=== PATIENT | female | born 1990 | race Caucasian/White ===

== ENCOUNTER 2017-07-16 20:43 | Emergency (ER) | payer MEDICAID, SELFPAY ==
[2017-07-16 20:52] VITALS: BP 115/87; PULSE 82; RESP 18; TEMP 36.6; O2SAT 96; BMI 25.7
[2017-07-16 21:01] LABS: UTC Pregnancy Test, Urine Negative (Negative)
--- NOTE | 2017-07-16 21:01 | HMH.EDUTC ---
[facility] – [place] Dis[place] Clinical Impression: Vaginal discharge, Exposure to sexually transmitted disease (STD), Unprotected sex Disposition: Home, Self-Care Condition on Discharge: Good Instructions: DI for Chlamydia, DI for Vaginal Discharge Additional Instructions: * you were treated for chlamydia today with 1 gram of azithromycin only due to exposure. As we discussed, vaginal swabs are the preferred method to test for sexually transmitted infections. no further medication is necessary if this were chlamydia. As we discussed, nothing we have done today has ruled out any other possible causes/infections. * It is VERY important you keep you schedule pelvic exam for next week with your primary care, Angela Hicks. Be sure to report you were here. Urine preg negative. Urine sent for chlamydia and gonorrhea. Your provider will need to call and have those results faxed. We do NOT give these results out over the phone. * No intercourse until further exam/testing next week. * Seek treatment immediately for new or worsening symptoms. * Although your test was negative, it could be too soon. If you think there is a possibility you could be , you need to tell your provider next week and she can repeat the test at that time. Time of Disposition: 21:08 Medical Decision Making - Mike Inquiry Pt receiving controlled substance: No Vital Signs: 07/16/17 20:52 07/16/17 21:07 Temperature 98 F 98 F Temperature Source Temporal Artery Scan Temporal Artery Scan Pulse Rate 82 Pulse Rate [Brachial] 82 Respiratory Rate 18 18 Blood Pressure 115/87 Blood Pressure [Right Arm] 115/87 Blood Pressure Mean [Right Arm] 96 Blood Pressure Position [Right Arm] Sitting 02 Sat by Pulse Oximetry 96 Oxygen Delivery Method Room Air Room Air - Lab Data Lab results reviewed: Yes: I reviewed the patient's lab results. Lab Results 07/16/17 20:54: [facility]st Clinic Negative Orders (Tests/Meds): ED MEDICATIONS Discontinued Medications Generic Name Dose Route Start Last Admin Trade Name Freq PRN Reason Stop Dose Admin Azithromycin 1,000 mg 07/16/17 21:02 07/16/17 21:04 Zithromax 250mg Tablet PO 07/16/17 21:03 1,000 mg ONCE ONE Administration Protocol [facility] [place] HPI - General Stated complaint: test Time Seen by Provider: 07/16/17 20:55 Mode of Arrival: Ambulatory Source of Information: Patient Limitations: No Limitations Description of Symptoms (Recalled from Triage Doc. by RN): PT STATES SHES HAD YELLOW VAGINAL DISCHARGE AND HAS BEEN EXPOSED TO THE CLAP AND WOULD ALSO LIKE A TEST WHILE SHE IS HERE . HEENT Symptoms (Recalled from RN notes): No Resp Symptoms (Recalled from RN notes): No Skin Symptoms (Recalled from RN notes): No MS Symptoms (Recalled from RN notes): No Functional Status (Recalled from RN notes): NA - History of Present Illness Provider Complaint: Here tonight requesting testing for chlamydia and a test. Had called clinic and aware the best way to test is vaginal exam/swabs. Inquiring about urine. Was told it was available but that no immediate results. Pt came on in. pt refusing vaginal exam. Only wants a urine test and urine preg. Has appt scheduled for pelvic exam next week. Hx of yellow vaginal discharge x 1 week. Initially wasn't concerned but 2 days ago found out fiance had been cheating. yesterday found out female he had been cheating on her with has tested positive for chlamydia twice in one month. LMP 4 weeks ago. Should start anytime. Had not been using protection or control. - Related Data Home Medications Medication Instructions Recorded Confirmed No Known Home Medications [No 07/16/17 07/16/17 Known Home Medications] Allergies Allergy/AdvReac Type Severity Reaction Status Date / Time cephalexin [From Keflex] Allergy Unknown Unverified 04/09/17 15:42 Penicillins Allergy Unknown Unverified 04/09/17 15:42 Sulfa
[2017-07-16 21:07] VITALS: BP 115/87; PULSE 82; RESP 18; TEMP 36.6; O2SAT 96
--- NOTE | 2017-07-16 21:07 | ED_ITS ---
[facility] – [place] Disposition Clinical Impression: Vaginal discharge, Exposure to sexually transmitted disease (STD), Unprotected sex Disposition: Home, Self-Care Condition on Discharge: Good Instructions: DI for Chlamydia, DI for Vaginal Discharge Additional Instructions: * you were treated for chlamydia today with 1 gram of azithromycin only due to exposure. As we discussed, vaginal swabs are the preferred method to test for sexually transmitted infections. no further medication is necessary if this were chlamydia. As we discussed, nothing we have done today has ruled out any other possible causes/infections. * It is VERY important you keep you schedule pelvic exam for next week with your primary care, Angela Hicks. Be sure to report you were here. Urine preg negative. Urine sent for chlamydia and gonorrhea. Your provider will need to call and have those results faxed. We do NOT give these results out over the phone. * No intercourse until further exam/testing next week. * Seek treatment immediately for new or worsening symptoms. * Although your test was negative, it could be too soon. If you think there is a possibility you could be , you need to tell your provider next week and she can repeat the test at that time. Time of Disposition: 21:08 Medical Decision Making - Mike Inquiry Pt receiving controlled substance: No Vital Signs: 07/16/17 20:52 07/16/17 21:07 Temperature 98 F 98 F Temperature Source Temporal Artery Scan Temporal Artery Scan Pulse Rate 82 Pulse Rate [Brachial] 82 Respiratory Rate 18 18 Blood Pressure 115/87 Blood Pressure [Right Arm] 115/87 Blood Pressure Mean [Right Arm] 96 Blood Pressure Position [Right Arm] Sitting 02 Sat by Pulse Oximetry 96 Oxygen Delivery Method Room Air Room Air - Lab Data Lab results reviewed: Yes: I reviewed the patient's lab results. Lab Results 07/16/17 20:54: Tst Clinic Negative Orders (Tests/Meds): ED MEDICATIONS Discontinued Medications Generic Name Dose Route Start Last Admin Trade Name Freq PRN Reason Stop Dose Admin Azithromycin 1,000 mg 07/16/17 21:02 07/16/17 21:04 Zithromax 250mg Tablet PO 07/16/17 21:03 1,000 mg ONCE ONE Administration Protocol [facility] [place] HPI - General Stated complaint: test Time Seen by Provider: 07/16/17 20:55 Mode of Arrival: Ambulatory Source of Information: Patient Limitations: No Limitations Description of Symptoms (Recalled from Triage Doc. by RN): PT STATES SHES HAD YELLOW VAGINAL DISCHARGE AND HAS BEEN EXPOSED TO THE CLAP AND WOULD ALSO LIKE A TEST WHILE SHE IS HERE . HEENT Symptoms (Recalled from RN notes): No Resp Symptoms (Recalled from RN notes): No Skin Symptoms (Recalled from RN notes): No MS Symptoms (Recalled from RN notes): No Functional Status (Recalled from RN notes): NA - History of Present Illness Provider Complaint: Here tonight requesting testing for chlamydia and a test. Had called clinic and aware the best way to test is vaginal exam /swabs. Inquiring about urine. Was told it was available but that no immediate results. Pt came on in. pt refusing vaginal exam. Only wants a urine test and urine preg. Has appt scheduled for pelvic exam next week. Hx of yellow vaginal discharge x 1 week. Initially wasn't concerned but 2 days ago found out asad had been cheating. yesterday found out f
[2017-07-19 11:37] LABS: Neisseria gonorrhoeae, NAA Negative (Negative)
== END 2017-07-16 21:09 | disposition home or self-care (01) ==
PROVIDERS: Emergency Provider Nurse Practitioner Family; Family Provider Family Medicine
DX: N89.8 Other specified noninflammatory disorders of vagina (principal); Z72.51 High risk heterosexual behavior; Z20.2 Contact with and (suspected) exposure to infections with a predominantly sexual mode of transmission
CPT/HCPCS: 81025; 87491; 87591; 99201

== ENCOUNTER 2023-12-26 16:31 | Emergency (ER) | payer BC, SELFPAY ==
[2023-12-26 17:00] VITALS: BP 110/77; PULSE 76; RESP 18; TEMP 36.7; O2SAT 98; BMI 27.6
--- NOTE | 2023-12-26 17:13 | ED_ITS ---
Discharge Plan Disposition Patient Disposition: Home, Self-Care Condition: Good Prescriptions Prescriptions: New azithromycin [Zithromax Z-Ben] 250 mg tablet See Rx Instructions .ROUTE .COMPLEX 5 Days Qty: 6 0RF Rx Instructions: For 250 mg dose pack: take 500 mg today (day 1), then 250 mg for 4 days (days 2-5) methylprednisolone [Medrol (Ben)] 4 mg tablets,dose pack See Rx Instructions .Route .COMPLEX 6 Days Qty: 21 0RF Rx Instructions: taper pack; benzonatate 100 mg capsule 100 mg PO TID PRN (Reason: cough) Qty: 30 0RF No Action venlafaxine 150 mg capsule,extended release 24hr 150 mg PO DAILY Patient Comments: TAKE 1 CAPSULE BY MOUTH DAILY Referrals Follow up/Referrals: Provider,Referral, MD [Primary Care Provider] - See instructions Activity Restrictions/Add. Instructions Additional Instructions/Restrictions: * Start antibiotic today. Be sure to complete entire prescription even if feeling better * Monitor temp. Tylenol every 4 hours as needed and / or ibuprofen every 6 hours as needed ( As long as your primary care physician has told you that it ok to take both. For fever/aches/pains ER if no less than 101 despite Tylenol or Motrin * Humidifier/vaporizer or hot steamy shower * Inhaler every 4-6 hours as needed like we discussed. If unsure how to use it, ask pharmacist to demonstrate how. Should help open airways and improve cough, wheezing, and shortness of breath * Mucinex during the day for your cough and cough suppressant only at night. Be sure to drink lots of water. Insurance may not cover a prescriptions for mucinex. Might be cheaper to get 400mg tablets and take 2 tablet in the morning, mid-day and evening with lots of water. *Promethazine DM cough syrup will cause drowsiness. Use only at night. No driving, operating machinery or caring for small children after taking it *Tessalon Perles will not cause drowsiness but use at bedtime to help stop cough so that you may get some rest. *Start steroid today. Helps with inflammation therefore, cough and wheezing. Follow directions on the package. Reviewed side effects. Patient reports taking them before. Follow up IMMEDIATELY for new or worsening of symptoms OR no noticeable improvement over the next 48-72 hours. 911 immediately for any life threatening symptoms such as chest pain or difficulty breathing Clinical Impressions Clinical Impression: Otitis media Instructions Patient Instructions: Middle Ear Infection, Cough Print Language Print Language: Wolof Discharge ED Provider: Carolyn Cole [facility] [place] General Stated complaint: cough Mode of Arrival: Ambulatory Source of Information: Patient Limitations: No Limitations Time Seen by Provider: 12/26/23 17:15 Description of Symptoms (Recalled from Triage Doc. by RN): PATIENT C/O COUGH, FATIGUE AND CONGESTION SINCE SATURDAY HEENT Symptoms (Recalled from RN notes): Yes Resp Symptoms (Recalled from RN notes): Yes Skin Symptoms (Recalled from RN notes): No MS Symptoms (Recalled from RN notes): No Functional Status (Recalled from RN notes): WNL History of Present Illness Provider Complaint: Patient states that she started feeling bad last weekend States that she has been having nagging cough, chest and head congestion and feeling full in her ears So today she came in to get checked Related Data Home Medications ?Medication ?Instructions ?Recorded ?Confirmed venlafaxine 150 mg 150 mg PO DAILY 12/26/23 12/26/23 capsule,extended release 24 hr Previous Rx's ?Medication ?Instructions ?Recorded azithromycin 250 mg tablet See Rx Instructions PO .COMPLEX 5 12/26/23 (Zithromax Z-Ben) days #6 tabs benzonatate 100 mg capsule 100 mg PO TID PRN cough #30 caps 12/26/23 methylprednisolone 4 mg tablets in See Rx Instructions .Route 12/26/23 a dose pack (Medrol (Ben)) .COMPLEX 6 days #21 tabs Allergies Allergy/AdvReac Type Severity Reaction Status Date / Time cephalexin [From Keflex] Allergy Unknown Verified 01/25/19 15:06 Penicillins Allergy Unknown Verified 01/25/19 15:06 Sulfa (Sulfonamide Allergy Unknown Verified 01/25/19 15:06 Antibiotics) [SULFA (SULFONAMIDE ANTIBIOTICS)] morphine Allergy Verified 12/26/23 17:11 Worker's Comp Is this a Worker's Comp case?: No [facility] Disclaimer: The information contained in this section may have been updated after the patient was seen, as this information can be updated by other users. Medical History (Updated 12/26/23 @ 17:30 by Carolyn Cole, WELL SURVEYING ENGINEER) Depression Anxiety Surgical History (Updated 12/26/23 @ 17:13 by Susanna Duffy RN) History of cholecystectomy History of section History of tubal ligation Social History Smoking Status: Never smoker alcohol intake: never substance use type: denies use current occupational status: employed Travel in the last 8 weeks: None ROS Obtained: Yes All systems reviewed & no additional complaints except as documented and Yes Systems reviewed as appropriate & no additional complaints except as documented Constitutional Constitutional: Reports system reviewed and no additional complaints, except as documented, Reports as per HPI and Reports headache(s) ENT Ears, Nose, Mouth, and Throat: Reports system reviewed and no additional complaints, except as documented, Reports as per HPI, Reports otalgia (pressure), Reports headache(s), Reports nasal congestion and Reports sinus pressure Cardiovascular Cardiovascular: Reports system reviewed and no additional complaints, except as documented and Reports as per HPI Respiratory Respiratory: Reports system reviewed and no additional complaints, except as documented, Reports as per HPI, Reports chest congestion and Reports cough Neurologic Neurologic: Reports headache(s) Physical Exam General General appearance: alert and in no apparent distress ENT ENT exam: Present mucous membranes moist Expanded ENT Exam TM/Canal exam: Left TM: erythema and bulging Nose exam: Present sinus tenderness Throat exam: Present other (PND noted) Respiratory Respiratory exam: Present normal lung sounds bilaterally; Absent respiratory distress or wheezes Cardiovascular Cardiovascular exam: Present regular rate, normal rhythm and normal heart sounds Neurological Exam Neurological exam: Present alert, oriented X3 and normal gait Medical Decision Making Mike Inquiry Pt receiving controlled substance: No Mike was queried for this patient: No Vital Signs: 12/26/23 17:00 Temperature 98.1 F Temperature Source Oral Pulse Rate [Left Brachial] 76 Respiratory Rate 18 Blood Pressure [Left Arm] 110/77 Blood Pressure Mean [Left Arm] 88 Blood Pressure Source [Left Arm] Automatic Cuff Blood Pressure Position [Left Arm] Sitting 02 Sat by Pulse Oximetry 98 Oxygen Delivery Method Room Air
[2023-12-26 17:30] VITALS: BP 110/77; PULSE 76; RESP 18; TEMP 36.7; O2SAT 98
== END 2023-12-26 17:33 | disposition home or self-care (01) ==
PROVIDERS: Emergency Provider Nurse Practitioner
DX: H66.92 Otitis media, unspecified, left ear (principal); R05.9 Cough, unspecified; R09.81 Nasal congestion
CPT/HCPCS: 99204; 99212; G0463

== ENCOUNTER 2024-02-26 14:48 | Outpatient (CLI) | payer BC, SELFPAY ==
[2024-02-26 09:34] LABS: Basophils % 0.9 % (0.1-2.0); Eosinophils % 0.2 % (0.1-12.0); Hematocrit 40.2 % (37.0-47.0); Hemoglobin 13.7 g/dL (12.2-16.2); Lymphocytes # 1.8 K/mm3 (0.7-4.5); Lymphocytes % 35.3 % (10-50); Mean Corpuscular Volume 85.3 fl (81-99); Mean Platelet Volume 8.3 fl (7.4-10.4); Monocytes # 0.4 K/mm3 (0.1-1.0); Monocytes % 8.5 % (1.7-9.3); Neutrophils # 2.8 K/mm3 (1.8-7.8); Neutrophils % 55.1 % (37.0-80.0); Platelet Count 268 K/mm3 (142-424); Red Blood Count 4.71 M/mm3 (4.20-5.40); White Blood Count 5.1 K/mm3 (4.8-10.8)
[2024-02-26 09:55] LABS: Albumin Level 4.2 g/dl (3.5-5.0); Albumin/Globulin Ratio 1.6 (1.1-1.8); Anion Gap 12.8 mEq/L (5-15); Aspartate Amino Transferase 23 U/L (14-36); Bilirubin,Total 0.9 mg/dl (0.2-1.3); Blood Urea Nitrogen 8 mg/dl (7-17); Carbon Dioxide 25 mmol/L (22.0-30.0); Chloride 107 mmol/L (98-107); Cholesterol 163 mg/dl (140-200); Estimated Glomerular Filt Rate 184 ml/min (>60); GFR (African American) 222 ML/MIN (>60); Globulin 2.7 g/dL (1.3-3.2); Glucose 80 mg/dl (74-100); Potassium 3.8 mmoL/L (3.5-5.1); Sodium 141 mmol/L (136-145); Total Protein,Serum 6.9 g/dl (6.3-8.2); Triglycerides 77 mg/dl (30-150); VLDL Cholesterol 15 mg/dL (0-40)
[2024-02-26 09:56] LABS: Alanine Aminotransferase 17 U/L (12-78); Alkaline Phosphatase 108 U/L (38-126); Chol/HDL Ratio 3.5 (1-3.5); HDL Cholesterol 47 mg/dl (40-60); Magnesium 1.9 mg/dl (1.6-2.3)
[2024-02-26 10:07] LABS: Direct LDL Cholesterol 92.92 mg/dL (100-129)
[2024-02-26 10:54] LABS: Iron 59 ug/dL (37-170)
[2024-02-26 11:03] LABS: Total Iron Binding Capacity 344 ug/dL (265-497)
[2024-02-26 12:19] LABS: Vitamin B12 391 pg/mL (239-931)
[2024-02-26 12:20] LABS: Folate 6.14 ng/mL
[2024-03-12 20:14] LABS: 1,25 Dihydroxy Vitamin D 68 pg/mL (.); 1,25-Dihydroxy, Vitamin D-2 <10 pg/mL (.); 1,25-Dihydroxy, Vitamin D-3 68 pg/mL (.)
== END 2024-02-26 23:59 | disposition home or self-care (01) ==
LOC: LAB.DROPOF 14:48
PROVIDERS: PCP Internal Medicine; Visit Provider Internal Medicine
DX: Z98.84 Bariatric surgery status (principal); D50.9 Iron deficiency anemia, unspecified; E78.5 Hyperlipidemia, unspecified; E53.8 Deficiency of other specified B group vitamins; E55.9 Vitamin D deficiency, unspecified; J30.9 Allergic rhinitis, unspecified
CPT/HCPCS: 80053; 80061; 82607; 82652; 82746; 83540; 83550; 83735; 85025

== ENCOUNTER 2024-05-13 10:45 | Outpatient (CLI) | payer BC, SELFPAY | END 2024-05-13 23:59 | disposition home or self-care (01) | LOC: LAB.DROPOF 05-14 13:55 | PROVIDERS: PCP Internal Medicine; Visit Provider Internal Medicine | DX: B34.9 Viral infection, unspecified (principal) | CPT/HCPCS: 87635 ==

== ENCOUNTER 2025-03-11 09:45 | Outpatient (CLI) | payer BC, SELFPAY ==
[2025-03-11 14:05] LABS: Hematocrit 36.5 % (37.0-47.0); Hemoglobin 11.5 g/dL (12.2-16.2); Immature Granulocytes % 0 %; Mean Corpuscular HGB Conc 31.5 g/dL (31.8-35.4); Mean Corpuscular Hemoglobin 27.8 pg (27.0-31.2); Mean Corpuscular Volume 88.2 fl (81-99); Nucleated Red Blood Cells % 0 %; Platelet Count 272 K/mm3 (142-424); Red Blood Count 4.14 M/mm3 (4.20-5.40); Red Cell Distribution Width-SD 43.7 fL; White Blood Count 3.0 K/mm3 (4.8-10.8)
[2025-03-11 14:40] LABS: Alanine Aminotransferase 39 U/L (12-78); Albumin Level 4.5 g/dl (3.5-5.0); Albumin/Globulin Ratio 1.6 (1.1-1.8); Alkaline Phosphatase 142 U/L (38-126); Anion Gap 12.2 mEq/L (5-15); Aspartate Amino Transferase 49 U/L (14-36); Bilirubin,Total 0.9 mg/dl (0.2-1.3); Blood Urea Nitrogen 8 mg/dl (7-17); Calcium 9.3 mg/dl (8.4-10.2); Carbon Dioxide 28 mmol/L (22.0-30.0); Chloride 101 mmol/L (98-107); Creatinine,Serum 0.50 mg/dl (0.52-1.04); Estimated Glomerular Filt Rate 141 ml/min (>60); GFR (African American) 171 ML/MIN (>60); Globulin 2.8 g/dL (1.3-3.2); Glucose 73 mg/dl (74-100); Magnesium 1.9 mg/dl (1.6-2.3); Potassium 4.2 mmoL/L (3.5-5.1); Sodium 137 mmol/L (136-145); Total Protein,Serum 7.3 g/dl (6.3-8.2)
[2025-03-11 15:28] LABS: Vitamin B12 278 pg/mL (239-931)
--- OUTSIDE RECORDS SUMMARY | 2025-03-12 13:48 | XMS_ITS | Patient Health Record ---
Author Organization [facility] Address [address] [place] [address] Care Team Providers Care Community Health Nurse Supervisor Name Role Phone Juliet Le Unavailable [phone] Allergies Allergen (clinical drug ingredient) Drug/Non Drug Allergy documented on EMR Reaction Allergy Type Onset Date Status KEFLEX (CEPHALEXIN CAPS) Unspecified Drug Allergy 09/06/2014 Active PENICILLIN V POTASSIUM (PENICILLIN V POTASSIUM TAB Unspecified Drug Allergy 09/06/2014 Active sulfamethoxazole / trimethoprim SULFAMETHOXAZOLE-T RIMETHOPRIM Unspecified Drug Allergy 05/27/2017 Active Reason For Referral No Information Problems Problem Type SNOMED Code ICD Code Onset Dates Problem Status W/U Status Risk Notes Problem 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 Passive Smoke: N Alcohol Use: N Drug Use: N SOCIAL HX: Patient has never smoked. Passive Smoke: N Alcohol Use: N Drug Use: N condylomas Rectal condylomas Surgical History Surgery Date(Month/Year) gallbladder wisdom teeth
--- OUTSIDE RECORDS SUMMARY | 2025-03-12 13:49 | XMS_ITS | Clinical Summary ---
Author Organization [facility] Address [address] [place] [address] Care Team Providers Care Photo Graphics Librarian Name Role Phone Angela Ly Primary Care Provider [phone] Allergies Active Allergy Reactions Criticality Noted Date Comments Cephalexin Hives Medium 10/04/2019 Morphine Hives Medium 10/04/2019 Penicillins Hives Medium 10/04/2019 Sulfa Antibiotics Hives Medium 10/04/2019 Medications Vit-Fe Fumarate-FA ( 27-1) 27-1 MG tablet tablet Take by mouth Daily. Active ibuprofen (ADVIL,MOTRIN) 600 MG tablet Take 1 tablet by mouth Every 6 (Six) Hours As Needed for Mild Pain . 30 tablet 1 12/27/2019 9:52 AM EDT 12/27/2019 Active norethindrone-et hinyl estradiol FE (05/11) 1-20 MG-MCG per tablet Take 1 tablet by mouth Daily. 28 tablet 12 03/07/2020 Active Active Problems Problem Noted Date Diagnosed Date Currently 12/22/2019 related low back p ain in third trimester, antepartum 10/04/2019 Immunizations Immunization Administration Dates Next Due MMR 12/27/2019 Family History Medical History Relation Name Comments Leukemia Maternal Grandfather Coronary artery disease Maternal Grandmother Coronary artery disease Mother Diabetes Mother Hypertension Mother Relation Name Status Comments Maternal Grandfather Maternal Grandmother Mother Social History Tobacco Use Types Packs/Day Years Used Date Smoking Tobacco: Never Smokeless Tobacco: Never Alcohol Use Standard Drinks/Week Comments Not Currently 0 (1 standard drink = 0.6 oz pur e alcohol) [place] Depression Scale Answer Date Recorded [place] Depression Scale Total 0 12/25/2019 The thought of harming myself has occurred to me . Never 12/25/2019 Abuse Screen Answer Date Recorded Unsafe at Home or Work/School Not on file Feels Threatened by Someone? Not on file 03/2023 Does Anyone Keep You from Co ntacting Others or Doint Things Outside the Home? Not on file 01/31/2023 Physical Sign of Abuse Present Not on file 1 Housing Stability Answer Date Recorded Current Living Arrangements Not on file 01/20 Potentially Unsafe Housing Conditions Not on rafaela e 01/31/2023 Family and Community Support Answer Jacques e Recorded Help with Day-to-Day Activities Not on file 01/31/2023 Lonely or Isolated Not on file 01/31/2023 Employment Answer Date Recorded Do you want help finding or keeping work or a alma b? Not on file 01/31/2023 Disabilities Answer Date Recorded Concentrating, Remembering, or Making Decisions Difficulty Not on file 01/31/2023 Doing Errands Independently Difficulty Not on fi le 01/31/2023 Education Answer Date Recorded Help with school or training? 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 Not on file Not on le Last Filed Vital Signs Vital Sign Reading Time Taken Comments Blood Pressure 112/72 02/08/2020 4:13 PM EDT Pulse 83 12/27/2019 7:00 AM EDT Temperature 36.6 C (97.9 F) 12/27/2019 7:00 AM EDT Respiratory Rate 16 12/27/2019 7:00 AM EDT Oxygen Saturation 98% 12/25/2019 10: 05 AM EDT Inhaled Oxygen Concentration - - Weight 90.2 kg (198 lb 14.4 oz) 02/08/2020 4:13 PM EDT Height 162.6 cm (5' 4 ) 01/12/2020 2:50 PM EDT Body Mass Index 34.14 01/12/2020 2:50 PM EDT Plan of Treatment Health Maintenance Due Date Last Done Comments Annual Gynecologic Pelvic an d Breast Exam 1990 TDAP/TD VACCINES (1 - Tdap) 2009 ANNUAL PHYSICAL 12/22/2019 INFLUENZA VACCINE 11/20/2024 HEPATITIS C SCREENING Completed 05/08/2019 Pneumococcal Vaccine 0-49 Aged Out No longer eligible based on patient's age to complete this topic Procedures Procedure Name Priority Date/Time Associated Diagnosis Comments HEPATITIS C ANTIBODY Routine 05/08/2019 from Last 3 Months or Most Recently Relevant to Health Maintenance Results * Hepatitis C Antibody (05/08/2019) External Hepatitis C Ab Negative Blood [facility] Provider LAB BLOOD ORDERABLES [place] Result from Last 3 Months or Most Recently Relevant to Health Maintenance Insurance Advance Directives * CPR (Attempt to Resuscitate) (Latest Code Status on File) Date Activated Date Inactivated Comments 12/25/2019 10:53 AM 12/27/2019 3:19 PM Question Answer Comments Code Status (Patient has no pulse and is not breathing): CPR (Attempt to Resuscitate) Medical Interventions (Patie nt has pulse or is breathing): Full Care Teams Photo Graphics Librarian Relationship Specialty Start Date End Date Angela Ly PA [address] [place], [place] [address] [address] [place] [id number] PCP - General Physician Production Engine Repairer 10/04/19
--- OUTSIDE RECORDS SUMMARY | 2025-03-12 13:49 | XMS_ITS | Clinical Summary ---
Author Organization [facility] Address [address] [id number] Care Team Providers Care Institution Director Name Role Phone Angela Ly Primary Care Provider Family History Medical History Relation Name Comments Hypertension Other 1 Other cancer Other 2 Heart attack Other 3 Relation Name Status Comments Other 1 Other 2 Other 3 Social History Tobacco Use Types Packs/Day Years Used Date Smoking Tobacco: Never Alcohol Use Standard Drinks/Week Comments No 0 (1 standard drink = 0.6 oz pur e alcohol) Comments Unknown Sex and Gender Information Value Date Recorded Sex Assigned at Not on file Legal Sex Female 6:02 PM EDT Gender Identity Not on file Sexual Orientation Not on file Last Filed Vital Signs Vital Sign Reading Time Taken Comments Blood Pressure - - Pulse - - Temperature - - Respiratory Rate - - Oxygen Saturation - - Inhaled Oxygen Concentration - - Weight 71.4 kg (157 lb 5.1 oz) 10/25/2015 11:13 AM EDT Height 157.5 cm (5' 2 ) 10/25/2015 11:13 AM EDT Body Mass Index 28.77 10/25/2015 11:13 AM EDT Plan of Treatment Not on file Care Teams Institution Director Relationship Specialty Start Date End Date Angela Ly PA [address] [place] [id number] PCP - General 09/02/20
--- OUTSIDE RECORDS SUMMARY | 2025-03-12 13:49 | XMS_ITS | Data Portability ---
Author Organization [facility] Address [address] [place] [address] Assessment No assessment recorded. Plan of Treatment Reminders Order Date Submit Date Provider Last Modified By Organization Details Last Modified Time Details Appointments None recorded. Lab vitamin B12 + folate, serum or blood 2020 THANH [facility], [address], [address], [place], [address], 09:13:22 CBC w/ auto diff 2020 021 THANH [facility], [address], [address] [address], [place], [address], 09:13:20 CMP, serum or plasma 2020 021 THANH [facility], [address], [address] [address], [place], [address], 09:13:21 vitamin D, 25-hydroxy, total, serum 2020 021 THANH [facility], [address], [place] [address], [place], [address], 09:13:24 TSH, ultra-sensi tive, serum 2020 021 THANH [facility], [address], [place] [address], [place], [address], 09:13:23 Referral None recorded. Procedures None recorded. Surgeries None recorded. Imaging None recorded. Medication Orders fluoxetine 40 mg capsule 2022 023 [facility], [address] [place], [address], 3 16:55:42 fluoxetine 40 mg capsule 2021 022 [facility], [address] [place], [address], 2 16:04:34 fluoxetine 20 mg capsule 2021 022 [facility], [address] [place], [address], 2 16:35:16 sertraline 50 mg tablet 2020 021 [email or web address], [address] [place], [address], 2 16:21:36 sertraline 25 mg tablet 2020 021 [email or web address], [address] [place], [address], 17:09:36 Patient TargetsNo targets recorded. Patient Instructions Encounter Date Encounter Id Patient Instructions Last Modified By Organization Details Last Modified Time 06/16/2020 [id number] learning about mood disorders Not available 06/16/2020 11:38:13 f/u in 3 weeks, discussed risks, benefits of meds [email or web address] Not available 06/16/2020 12:55:33 07/13/2020 [id number] learning about mood disorders [email or web address] Not available 07/13/2020 17:09:29 08/10/2021 [id number] learning about mood disorders [email or web address] Not available 08/10/2021 16:33:13 mental health counseling* [email or web address] Not available 05/25/2022 12:34:41 f/u in one month [email or web address] Not availabl e 08/10/2021 16:48:54 09/11/2021 [id number] learning about mood disorders [email or web address] Not available 09/11/2021 17:22:50 f/u in 3 months [email or web address] Not available 09/11/2021 17:22:15 05/11/2022 [id number] learning about mood disorders [email or web address] Not available 05/11/2022 16:55:18 f/u in 6 months [email or web address] Not available 05/11/2022 16:58:01 Reason for Referral None Reported. 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 Nucle ic acid ampli ficat ion tests inclu de RT-PC R and TMA. This test has not been FDA clear ed or appro anu. This test has been autho rized by FDA under an Emerg ency Use Autho rizat ion (EUA) . This test is only autho rized for the durat ion of time the decla ratio n that circu mstan aristides exist justi fying the autho rizat ion of the emerg ency use of in vitro diagn ostic tests for detec tion of SARS- CoV-2 virus and/o r diagn osis of COVID -19 infec tion under secti on 564(b )(1) of the Act, 21 U.S.C . 360bb b-3(b ) (1), unles s the autho rizat ion is termi nated or revok ed soone r. When diagn ostic testi ng is negat monie, the possi bilit y of a false negat monie resul t shoul d be consi dered in the minal xt of a patie nt's recen t expos ures and the prese nce of clini starr signs and sympt oms consi stent with COVID -19. An indiv idual witho ut sympt oms of COVID -19 and who is not [place] ing SARS- CoV-2 virus would expec t to have a negat monie (not detec marcus) resul t in this assay . Not Available [facility] [email or web address] [facility], [place], [address], 05/20/2020 15:09:53 05/19/19 21 05/19/2020 rapid flu (A+B) Flu negati ve Not Available [facility] [address], [place], [address], 05/19/2020 11:13:04 05/19/19 21 05/19/2020 rapid flu (A+B) Type Both A & B Not Available [facility] [address], [place], [address], 05/19/2020 11:13:04 05/19/19 21 05/19/2020 rapid SARS CoV + SARS CoV 2 Ag, QL IA, respi rator y speci men SARS CoV antigen Positi ve Not Available [facility] [address], [place], [address], 05/19/2020 11:13:02 06/16/19 21 06/17/2020 CBC w/ auto diff WBC 8.1 x10e3 /uL 3.4-10 .8 Not Available [facility] ([facility]) [address] [facility], [place], [address], 06/17/2020 09:13:19 06/16/19 21 06/17/2020 CBC w/ auto diff RBC 4.65 x10e6 /uL 3.77-5 .28 Not Available [facility] ([facility]) [address] [facility], [place], [address], 06/17/2020 09:13:19 06/16/19 21 06/17/2020 CBC w/ auto diff hemoglobin 12.9 g/dL 11.1-1 5.9 Not Available [facility] ([facility]) [address] [place], [address], 06/17/2020 09:13:19 06/16/19 21 06/17/2020 CBC w/ auto diff hematocrit 40.0 % 34.0-4 6.6 Not Available [facility] ([facility]) [address] [place], [address], 06/17/2020 09:13:19 06/16/1906/17/2020 CBC w/ auto diff MCV 86 fL 79-97 Not Available [facility] ([facility]) [address] [place], [address], 06/17/2020 09:13:19 06/16/19 21 06/17/2020 CBC w/ auto diff MCH 27.7 pg 26.6-3 3.0 Not Available [facility] ([facility]) [address] [place], [address], 06/17/2020 09:13:19 06/16/19 21 06/17/2020 CBC w/ auto diff MCHC 32.3 g/dL 31.5-3 5.7 Not Available [facility] ([facility]) [address] [place], [address], 06/17/2020 09:13:19 06/16/19 21 06/17/2020 CBC w/ auto diff RDW 13.3 % 11.7-1 5.4 Not Available [facility] ([facility]) [address] [place], [address], 06/17/2020 09:13:19 06/16/19 21 06/17/2020 CBC w/ auto diff platelets 362 x10e3 /uL 150-45 0 Not Available [facility] ([facility]) [address] [place], [address], 06/17/2020 09:13:19 06/16/19 21 06/17/2020 CBC w/ auto diff neutrophils 65 % not estab. Not Available [facility] ([facility]) [address] [facility], [place], [address], 06/17/2020 09:13:19 06/16/19 21 06/17/2020 CBC w/ auto diff lymphs 27 % not estab. Not Available [facility] ([facility]) [address] [facility], [place], [address], 06/17/2020 09:13:19 06/16/19 21 06/17/2020 CBC w/ auto diff monocytes 6 % not estab. Not Available [facility] ([facility]) [address] [facility], [place], [address], 06/17/2020 09:13:19 06/16/19 21 06/17/2020 CBC w/ auto diff eos 2 % not estab. Not Available [facility] ([facility]) [address] [facility], [place], [address], 06/17/2020 09:13:19 06/16/19 21 06/17/2020 CBC w/ auto diff basos 0 % not estab. 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 0 Not Available [facility] ([facility]) [address] [place], [address], 06/17/2020 09:13:19 06/16/19 21 06/17/2020 CBC w/ auto diff lymphs (absolute) 2.2 x10e3 /uL 0.7-3. 1 Not Available [facility] ([facility]) [address] [facility], [place], [address], 06/17/2020 09:13:19 06/16/19 21 06/17/2020 CBC w/ auto diff monocytes(ab solute) 0.5 x10e3 /uL 0.1-0. 9 Not Available [facility] ([facility]) [address] [place], [address], 06/17/2020 09:13:19 06/16/19 21 06/17/2020 CBC w/ auto diff eos (absolute) 0.2 x10e3 /uL 0.0-0. 4 Not Available [facility] ([facility]) [address] [facility], [place], [address], 06/17/2020 09:13:19 06/16/19 21 06/17/2020 CBC w/ auto diff baso (absolute) 0.0 x10e3 /uL 0.0-0. 2 Not Available [facility] ([facility]) [address] [facility], [place], [address], 06/17/2020 09:13:19 06/16/19 21 06/17/2020 CBC w/ auto diff immature granulocytes 0 % not estab. Not Available [facility] ([facility]) [address] [place], [address], 06/17/2020 09:13:19 06/16/19 21 06/17/2020 CBC w/ auto diff immature grans (abs) 0.0 x10e3 /uL 0.0-0. 1 Not Available [facility] ([facility]) [address] [place], [address], 06/17/2020 09:13:19 06/16/19 21 06/17/2020 CBC w/ auto diff NRBC ELEVATOR ERECTOR Not Available [facility] ([facility]) [address] [place], [address], 06/17/2020 09:13:19 06/16/19 21 06/17/2020 CBC w/ auto diff hematology comments: ELEVATOR ERECTOR Not Available [facility] ([facility]) [address] [place], [address], 06/17/2020 09:13:19 06/16/19 21 06/17/2020 CMP, serum or plasm a glucose 96 mg/dL 65-99 Not Available [facility] ([facility]) [address] [place], [address], 06/17/2020 09:13:21 06/16/19 21 06/17/2020 CMP, serum or plasm a BUN 11 mg/dL 6-20 Not Available [facility] ([facility]) [address] [place], [address], 06/17/2020 09:13:21 06/16/19 21 06/17/2020 CMP, serum or plasm a creatinine 0.78 mg/dL 0.57-1 .00 Not Available [facility] ([facility]) [address] [place], [address], 06/17/2020 09:13:21 06/16/19 21 06/17/2020 CMP, serum or plasm a eGFR if nonafricn AM 103 mL/mi n/1.7 3 >59 Not Available [facility] ([facility]) [address] [place], [address], 06/17/2020 09:13:21 06/16/19 21 06/17/2020 CMP, serum or plasm a eGFR if africn AM 119 mL/mi n/1.7 3 >59 Not Available [facility] ([facility]) [address] [place], [address], 06/17/2020 09:13:21 06/16/19 21 06/17/2020 CMP, serum or plasm a BUN/creatini ne ratio 14 9-23 Not Available [facility] ([facility]) [address] [place], [address], 06/17/2020 09:13:21 06/16/19 21 06/17/2020 CMP, serum or plasm a sodium 143 mmol/ L 134-14 4 Not Available [facility] ([facility]) [address] [place], [address], 06/17/2020 09:13:21 06/16/19 21 06/17/2020 CMP, serum or plasm a potassium 3.9 mmol/ L 3.5-5. 2 Not Available [facility] ([facility]) [address] [place], [address], 06/17/2020 09:13:21 06/16/19 21 06/17/2020 CMP, serum or plasm a chloride 105 mmol/ L 96-106 Not Available [facility] ([facility]) [address] [place], [address], 06/17/2020 09:13:21 06/16/19 21 06/17/2020 CMP, serum or plasm a carbon dioxide, total 22 mmol/ L 20-29 Not Available [facility] ([facility]) [address] [place], [address], 06/17/2020 09:13:21 06/16/19 21 06/17/2020 CMP, serum or plasm a calcium 9.1 mg/dL 8.7-10 .2 Not Available [facility] ([facility]) [address] [place], [address], 06/17/2020 09:13:21 06/16/19 21 06/17/2020 CMP, serum or plasm a protein, total 7.2 g/dL 6.0-8. 5 Not Available [facility] ([facility]) [address] [facility] [place], [address], 06/17/2020 09:13:21 06/16/19 21 06/17/2020 CMP, serum or plasm a albumin 4.0 g/dL 3.9-5. 0 Not Available [facility] ([facility]) [address] [facility] [place], [address], 06/17/2020 09:13:21 06/16/19 21 06/17/2020 CMP, serum or plasm a globulin, total 3.2 g/dL 1.5-4. 5 Not Available [facility] ([facility]) [address] [facility] [place], [address], 06/17/2020 09:13:21 06/16/1906/17/2020 CMP, serum or plasm a A/G ratio 1.3 1.2-2. 2 Not Available [facility] ([facility]) [address] [facility] [place], [address], 06/17/2020 09:13:21 06/16/1906/17/2020 CMP, serum or plasm a bilirubin, total 0.5 mg/dL 0.0-1. 2 Not Available [facility] ([facility]) [address] [place], [address], 06/17/2020 09:13:21 06/16/1906/17/2020 CMP, serum or plasm a alkaline phosphatase 94 IU/L 39-117 Not Available [facility]) [address] [place], [address], 06/17/2020 09:13:21 06/16/1906/17/2020 CMP, serum or plasm a AST (SGOT) 13 IU/L 0-40 Not Available [facility] ([facility]) [address] [place], [address], 06/17/2020 09:13:21 06/16/19 21 06/17/2020 CMP, serum or plasm a ALT (SGPT) 23 IU/L 0-32 Not Available [facility] ([facility]) [address] [facility], [place], [address], 06/17/2020 09:13:21 06/16/19 21 06/17/2020 vitam in B12 + folat e, serum or blood vitamin B12 824 pg/mL 232-12 45 Not Available [facility] ([facility]) [address] [facility], [place], [address], 06/17/2020 09:13:21 06/16/1906/17/2020 vitam in B12 + folat e, serum or blood folate (folic acid), serum >20.0 NG/mL >3.0 A serum folat e clyde ntrat ion of less than 3.1 ng/mL is consi dered to repre sent clini starr defic iency . Not Available [facility] ([facility]) [address] [facility], [place], [address], 06/17/2020 09:13:21 06/16/1906/17/2020 TSH, ultra -sens itive , serum TSH 1.370 uIU/m L 0.450- 4.500 Not Available [facility] ([facility]) [address] [facility], [place], [address], 06/17/2020 09:13:22 06/16/1906/17/2020 vitam in D, 25-hy droxy , total , serum vitamin D, 25-hydroxy 39.0 NG/mL 30.0-1 00.0 Vitam in D defic iency has been defin ed by the Insti tute of Medic ine and an Endoc rine Socie ty pract ice guide line as a level of serum 25-OH vitam in D less than 20 ng/mL (1,2) . The Endoc rine Socie ty went on to [facility] er defin e vitam in D insuf ficie ncy as a level betwe en 21 and 29 ng/mL (2). 1. IOM (Inst itute of Medic ine). 2009. Alicia ry refer ence intzenobia es for calci um and D. Soumya ortiz [place]: The [facility] . 2. Olman k [place], Binkl ey [place], Bisch off-F errar i BRIONES, et al. Evalu ation , treat ment, and preve ntion of vitam in D defic iency : an Endoc rine Socie ty clini starr pract ice guide line. JCEM. 2010; 96(7) :1911 -30. Not Available [facility] ([facility]) [address] [facility], [place], [address], 06/17/2020 09:13:23 Result Notes None recorded. Problems Name Problem SNOMED Code Status Onset Date Resolution Date Notes Provider Name and Address Organization Details Recorded Time Depressive disorder 71553467 Active 021 Indra weber, [place] - [facility] 16:59:26 Problem Notes None recorded. Procedures Surgical History Date Name Laterality Status Provider Name and Address Organization Details Recorded Time 02/07/20 17 Date of Last Pap Smear completed Tika PARRA - [facility] 04/01/2017 10:08:51 04/06/20 15 Colposcopy completed Tika PARRA - [facility] 04/01/2017 10:09:22 04/05/20 15 Colposcopy completed Tika Pagan [place] - [facility] 04/01/2017 10:12:38 03/22/20 14 Cholecystectomy, laparoscopic completed Tika PARRA - [facility] 04/01/2017 10:13:07 11/29/19 10 delivery completed Tika PARRA - [facility] 04/01/2017 10:12:49 dental surgery completed Tika PARRA - [facility] 04/01/2017 10:13:13 Imaging Results None recorded. Procedure Notes None recorded. Medical Equipment None Reported. Allergies Allergen ID Allergen Name Allergen Category Reaction Reaction Severity Criticality Documentation Date Start Date Code Code System Note Provider Name and Address Organization Details Recorded Time 47644 Substance with sulfonami de structure and antibacte rial mechanism of action (substanc e) medicatio n rash Not available Not available 01/27/20162008 91277 8003 SNOMED React ion: rash; Not Available [facility] 6 09:55:00 38712 Product containin g penicilli n (product) medicatio n rash Not available Not available 01/27/20162008 31367 8001 SNOMED React ion: rash; Not Available [facility] 6 09:55:00 16290 Keflex medicatio n rash Not available Not available 01/27/20162008 62564 7 RxNorm React ion: rash; Not Available [facility] 6 09:55:01 04839 house dust mite environme nt Not available Not available Not available 01/27/20162008 Not Available [facility] 6 10:03:44 Medications Name Sig Start Date Stop Date Status Note LastModified by Organization Details LastModified Time fluoxetin e 40 mg capsule TAKE 1 CAPSULE BY MOUTH ONCE DAILY. active Not Available Not Available No t Available fluconazo le 100 mg tablet TAKE 1 TABLET BY MOUTH ONCE DAILY. active Not Available Not Available No t Available promethaz ine-DM 6.25 mg-15 mg/5 mL oral syrup TAKE 5ML BY MOUTH EVERY 4 HOURS NEEDED. active Not Available Not Available No t Available venlafaxi ne ER 37.5 mg capsule,e xtended release 24 hr TAKE 1 CAPSULE BY MOUTH DAILY. active Not Available Not Available No t Available venlafaxi ne ER 75 mg capsule,e xtended release 24 hr TAKE 1 CAPSULE BY MOUTH ONCE DAILY active Not Available Not Available No t Available doxycycli ne hyclate 100 mg capsule TAKE 1 CAPSULE BY MOUTH TWICE A DAY. active Not Available Not Available No t Available tizanidin e 2 mg tablet TAKE 1 TABLET BY MOUTH ONCE DAILY NEEDED. 08/10 completed Not Available Not Available Not Available clindamyc in HCl 300 mg capsule 04/01 completed Not Available Not Available Not Available azithromy wilver 250 mg tablet TAKE 2 TABLETS BY MOUTH THE FIRST DAYS DOSE, THEN TAKE 1 TABLET DAILY FOR 4 MORE DAYS. active Not Available Not Available No t Available ibuprofen 800 mg tablet 04/01 completed Not Available Not Available Not Available fluconazo le 150 mg tablet TAKE 1 TABLET BY MOUTH NOW THEN REPEAT IN 3 DAYS 08/10 completed Not Available Not Available Not Available sumatript an 25 mg tablet TAKE 1 TABLET BY MOUTH WITH FLUIDS AT ONSET OF MIGRAINE . MAY REPEAT WITH 1 TAB IN 2 HOURS IF NEEDED. DO NOT EXCEED 2 TABLETS IN 24 HOURS. 08/10 completed Not Available Not Available Not Available prednison e 20 mg tablet TAKE 3 TABLETS A DAY FOR 2 DAYS , THEN 2 TABLETS A DAY FOR 2 DAYS, THEN 1 DAILY FOR 2 DAYS active Not Available Not Available No t Available prednison e 5 mg tablet TAKE 6 TABS ON DAY 1, 5 TABS ON DAY 2, 4 TABS ON DAY 3, 3 TABS ON DAY 4, 2 TABS ON DAY 5, 1 TAB ON DAY 6, THEN STOP. TAKE WITH FOOD 08/10 completed Not Available Not Available Not Available clindamyc in HCl 150 mg capsule TAKE 1 CAPSULE BY MOUTH 2 TIMES DAILY active Not Available Not Available No t Available metronida zole 500 mg tablet take 1 tablet (500 mg) by oral route 2 times per day for 7 days 11/11 completed Not Available Not Available Not Available norethind dorothy 1 mg-ethiny l estradiol 20 mcg (21)-iron 75 mg (7) tablet TAKE 1 TABLET BY MOUTH DAILY. 08/10 completed Not Available Not Available Not Available valacyclo vir 500 mg tablet 04/01 completed Not Available Not Available Not Available ciproflox acin 500 mg tablet TAKE 1 TABLET BY MOUTH EVERY 12 HOURS FOR 7 DAYS. active Not Available Not Available No t Available doxycycli ne monohydra te 100 mg tablet TAKE 1 TABLET BY MOUTH 2 TIMES DAILY active Not Available Not Available No t Available pantopraz ole 20 mg tablet,de layed release 04/01 completed Not Available Not Available Not Available meloxicam 7.5 mg tablet TAKE 1 TABLET BY MOUTH ONCE DAILY. active Not Available Not Available No t Available oxycodone -acetamin ophen 5 mg-325 mg tablet 05/19 completed Not Available Not Available Not Available Metrogel Vaginal 0.75 % (37.5 mg/5 gram) insert 1 applicat orful (37.5 mg) by vaginal route once daily at bedtime for 5 days 01/11 completed Metrogel Vaginal Gel 0.75 %;Record ed Status: Recorded on: 09/24/19 10 10:23AM; Disconti nued Status: Disconti nued on: 01/12/20 10 1:23PM;U ser: [email or web address];E st. Completi on: 09/29/19 10;Indic ation: Bacteria l Vaginosi s - ([phone] 00);Prin marcus: 09/24/19 10 Not Available Not Available Not Available imiquimod 5 % topical cream packet 04/01 completed Not Available Not Available Not Available benzonata te 100 mg capsule take 1 -2 capsules (100 mg) by oral route 3 times per day PRN for cough 04/01 completed benzonat ate Oral capsule 100 mg;Recor ded Status: Recorded on: 06/18/19 13 1:46PM;U ser: [email or web address];Printe d: 06/18/19 13 Not Available Not Available Not Available doxycycli ne monohydra te 100 mg capsule TAKE 1 CAPSULE BY MOUTH TWICE A DAY. 08/10 completed Not Available Not Available Not Available hydrocodo ne 7.5 mg-acetam inophen 325 mg tablet 04/01 completed Not Available Not Available Not Available erythromy wilver 5 mg/gram (0.5 %) eye ointment APPLY A THIN LAYER TO AFFECTED EYE(S) 4 TIMES DAILY FOR 7 DAYS 08/10 completed Not Available Not Available Not Available acyclovir 5 % topical ointment 04/01 completed Not Available Not Available Not Available oseltamiv ir 75 mg capsule active Not Available Not Available Not Available ferrous sulfate 325 mg (65 mg iron) tablet take 1 tablet by oral route daily for 30 days 01/11 completed Ferrous Sulfate Oral Tablet 325 mg (65 Iron);Re corded Status: Recorded on: 04/07/20 09 10:50AM; Disconti nued Status: Disconti nued on: 01/12/20 10 1:23PM;U ser: [email or web address]; Est. Completi on: 04/02/20 10 Not Available Not Available Not Available ranitidin e 150 mg tablet 05/19 completed Not Available Not Available Not Available fluoxetin e 10 mg capsule TAKE 1 CAPSULE BY MOUTH DAILY. active Not Available Not Available No t Available sertralin e 25 mg tablet Take 1 tablet every day by oral route for 30 days. 07/13 completed Not Available Not Available Not Available omeprazol e 20 mg capsule,d elayed release take 1 capsule by oral route 2 times a day for 30 days 04/01 completed Not Available Not Available Not Available Nix Creme Rinse 1 % topical liquid apply a sufficie nt amount of shampoo by topical route once allow to remain on hair for 10 minutes before rinsing off with water 04/07 completed Nix Creme Rinse Topical Liquid 1 %;Record ed Status: Recorded on: 02/29/20 12:54PM; Disconti nued Status: Disconti nued on: 04/07/20 09 10:33AM; User: Chata stPark Completi on: 03/02/20 09;Indic ation: Pediculo sis Capitis - ();Prin marcus: 02/29/20 Not Available Not Available Not Available norgestim ate-ethin yl estradiol 0.18mg/0. 215mg/0.2 5mg-0.035 mg(28)tab let TAKE 1 TABLET BY MOUTH ONCE DAILY. 08/10 completed Not Available Not Available Not Available ibuprofen 600 mg tablet 05/19 completed Not Available Not Available Not Available methylpre dnisolone 4 mg tablets in a dose pack 04/01 completed Not Available Not Available Not Available Terazol 7 0.4 % vaginal cream insert 1 applicat orful by vaginal route once daily at bedtime for 7 days 01/11 completed Terazol 7 Vaginal Cream 0.4 %;Record ed Status: Recorded on: 10/22/19 10 10:52AM; Disconti nued Status: Disconti nued on: 01/12/20 10 1:23PM;U ser: Jaqui st. Completi on: 10/29/19 10;Print ed: 10/22/19 10 Not Available Not Available Not Available brompheni ramine-ps eudoephed rine-DM 2 mg-30 mg-10 mg/5 mL oral syrup TAKE 10 ML BY MOUTH 3 TIMES DAILY NEEDED FOR COUGH FOR 5 DAYS. 08/10 completed Not Available Not Available Not Available ondansetr on 4 mg disintegr ating tablet DISSOLVE 1 TABLET BY MOUTH EVERY 8 HOURS FOR 5 DAYS. active Not Available Not Available No t Available fluoxetin e 20 mg capsule TAKE 1 CAPSULE BY MOUTH DAILY. active Not Available Not Available No t Available fluticaso ne propionat e 50 mcg/actua tion nasal spray,monica pension INSTILL 1 SPRAY IN EACH NOSTRIL ONCE DAILY FOR 7 DAYS. 08/10 completed Not Available Not Available Not Available sertralin e 50 mg tablet TAKE 1 TABLET BY MOUTH DAILY. 08/10 completed Not Available Not Available Not Available naproxen 500 mg tablet TAKE 1 TABLET EVERY 12 HOURS WITH FOOD OR MILK. 08/10 completed Not Available Not Available Not Available Ventolin HFA 90 mcg/actua tion aerosol inhaler AD 06/16 completed Not Available Not Available Not Available Depo-Prov era 150 mg/mL intramusc ular syringe inject 1 millilit er (150 mg) by intramus cular route every 3 months next dose due no later than 03/02/10 ; Mother may inject but please call office so we can document dates 06/25 completed Depo-Pro vera Intramus cular Syringe 150 mg/mL;Re corded Status: Recorded on: 01/12/20 10 1:46PM;D iscontin ued Status: Disconti nued on: 06/26/19 12 3:58PM;U ser: showerl; Printed: 01/12/20 10 Not Available Not Available Not Available cyclobenz aprine 5 mg tablet 04/01 completed Not Available Not Available Not Available nitrofura ntoin monohydra te/macroc rystals 100 mg capsule take 1 capsule (100 mg) by oral route every 12 hours with food for 7 days 05/19 completed Not Available Not Available Not Available 27 mg iron-0.8 mg tablet take 1 tablet by oral route once daily for 30 days 01/11 completed Oral Tablet 27-0.8 mg;Recor ded Status: Recorded on: 08/13/19 10 10:45AM; Disconti nued Status: Disconti nued on: 01/12/20 10 1:23PM;U ser: [email or web address];Est. Completi on: 08/08/19 11;Indic ation: Pregnanc y - (18.[id number]);Prin marcus: 08/13/19 10 Not Available Not Available Not Available Tri-Lo-Sp rintec 0.18 mg/0.215 mg/0.25 mg-0.025 mg tablet TAKE 1 TABLET BY MOUTH DAILY. active Not Available Not Available No t Available Dasetta (28) 1 mg-35 mcg tablet 04/01 completed Not Available Not Available Not Available Garden-Liny ah 0.25 mg-0.035 mg tablet take 1 tablet by oral route once daily 05/19 completed Not Available Not Available Not Available Wegovy 0.25 mg/0.5 mL subcutane ous pen injector active Not Available Not Available Not Available Vitals Date Recorded Body weight Body temperature Heart rate Oxygen saturation Respiratory rate Pain severity - 0-10 verbal numeric rating [Score] - Reported Systolic And Diastolic Provider Name and Address Organization Details Last Updated DateTime 3 59071.9 9 g 98 [degF] 86 /min 97 % 19 /min 0 118/76 mm[Hg] Indra Avon [place] - [facility] 3 16:50:59 Date Recorded Body weight Body temperature Heart rate Oxygen saturation Respiratory rate Systolic And Diastolic Provider Name and Address Organization Details Last Updated DateTime 1 40162.8 3 g 97.8 [degF] 88 /min 98 % 18 /min 110/64 mm[Hg] Indra Avon [place] - [facility] 1 11:25:34 Date Recorded Body weight Body temperature Heart rate Oxygen saturation Respiratory rate Systolic And Diastolic Provider Name and Address Organization Details Last Updated DateTime 1 48087.4 3 g 98.4 [degF] 82 /min 99 % 18 /min 112/60 mm[Hg] Indra Avon [place] - [facility] 1 17:02:55 Date Recorded Body weight Body temperature Heart rate Respiratory rate Oxygen saturation Pain severity - 0-10 verbal numeric rating [Score] - Reported Systolic And Diastolic Provider Name and Address Organization Details Last Updated DateTime 2 88066.6 8 g 98 [degF] 72 /min 19 /min 98 % 0 118/70 mm[Hg] Indra PARRA - [facility] 2 16:20:19 Date Recorded Body weight Body temperature Heart rate Oxygen saturation Respiratory rate Pain severity - 0-10 verbal numeric rating [Score] - Reported Systolic And Diastolic Provider Name and Address Organization Details Last Updated DateTime 2 28975.8 4 g 98 [degF] 68 /min 98 % 19 /min 0 112/74 mm[Hg] Indra PARRA - [facility] 2 17:18:04 Social History Question Answer Notes LastModified by [employer] ion Details LastModified Time Tobacco Smoking Status Never Smoker Not Available [facility] 02/05/2020 03:13:29 Do You Have An Advance Directive? No [id number] Information not available 02/05/2020 Are You Blind Or Do You Have Difficulty Seeing? No [id number] Information not available 02/05/2020 Is Blood Transfusion Acceptable In An Emergency? Yes [id number] Information not available 02/05/2020 What Is Your Level Of Caffeine Consumption? Moderate [id number] Information not available 02/05/2020 How Much Tobacco Do You Chew? None [id number] Information not available 02/05/2020 Are You Deaf Or Do You Have Serious Difficulty Hearing? No [id number] Information not available 02/05/2020 What Type Of Diet Are You Following? REGULAR [id number] Information not available 02/05/2020 What Is The Highest Grade Or Level Of School You Have Completed Or The Highest Degree You Have Received? [id number] Information not available 02/05/2020 How Many Days Of Moderate To Strenuous Exercise, Like A Brisk Walk, Did You Do In The Last 7 Days? 1 [id number] Information not available 02/05/2020 On Those Days That You Engage In Moderate To Strenuous Exercise, How Many Minutes, On Average, Do You Exercise? 1 [id number] Information not available 02/05/2020 How Hard Is It For You To Pay For The Very Basics Like Food, Housing, Medical Care, And Heating? 1 [email or web address] Information not available 07/08/2018 Live Alone Or With Others? With Others Information not available 04/01/2017 Last Menstrual Period? 06/24/2018 Information not available 07/08/2018 What Was The Date Of Your Most Recent Tobacco Screening? 05/19/2020 [email or web address] Information not available 05/19/2020 How Many Children Do You Have? 1 [id number] Information not available 02/05/2020 Performs Monthly Self-breast Exam? Yes Information not available 04/01/2017 Do You Use Protection During Sex? Always [id number] Information not available 02/05/2020 What Is Your Relationship Status? Single In A Relationship [id number] Information not available 02/05/2020 Seat Belts Used Routinely Yes Information not available 04/01/2017 Are You Sexually Active? Yes [id number] Information not available 02/05/2020 How Much Tobacco Do You Smoke? No [id number] Information not available 02/05/2020 General Stress Level Low Information not available 04/01/2017 Do You Use Sunscreen Routinely? Yes [id number] Information not available 02/05/2020 Has Tobacco Cessation Counseling Been Provided? No [id number] Information not available 02/05/2020 Do You Have Difficulty Walking Or Climbing Stairs? No [id number] Information not available 02/05/2020 Sex: Female Functional Status Question Answer Note LastModified by Organizat ion Details LastModified Time What is your level of alcohol consumption? None [id number] Information not available 02/05/2020 Are you currently employed? Yes [id number] Information not available 02/05/2020 Urinary incontinence assessment performed? No Information not available 04/01/2017 Are you able to walk independently without assistance or assistive devices? YESWOREST [id number] Information not available 02/05/2020 Do you have difficulty doing errands alone? No [id number] Information not available 02/05/2020 What is your occupation? [employer] Information not available 11/11/2017 Do you have difficulty dressing, bathing, grooming, or toileting? No [id number] Information not available 02/05/2020 What is your exercise level? Occasional [id number] Information not available 02/05/2020 Mental Status Question Answer Note LastModified by Organization D etails LastModified Time Do you feel stressed (tense, restless, nervous, or anxious, or unable to sleep at night)? 1 [id number] Information not available 02/05/2020 Do you have difficulty concentrating, remembering or making decisions? No [id number] Information no t available 02/05/2020 Family History Relationship Description Onset Age of this Age Resolved Age Notes LastModified by Organization Details LastModified Time Paternal Grandmother Heart disease [email or web address] Not available 2016 10:11:13 Medical History Condition Response Pancreatitis N Other N Atrial Fibrillation N congenital heart disease N Blood Diseases N Hyperthyroidism N Blood Transfusion N Rheumatoid arthritis N Erectile Dysfunction N amputation N Skin Lesions N Depression N Pneumonia N Incontinence N Murmur N Edema N Alzheimer's Disease N Migraine Headaches N Tobacco Abuse N Anxiety Disorder N Hemorrhoids N Obesity N Vision or Eye Problems N Arthritis N Restless Leg Syndrome N Polyps N Infertility N Carpal Tunnel N Acid Reflux (GERD) N Cancer N Varicosities N Stroke N Tendonitis N Crohn's Disease N Hypercholesterolemia N Skin Cancer N Headaches N Fibromyalgia N Irritable Bowel Syndrome N Anal Fissure N Kidney Disease N Heart Problems N Hospitalizations N Gallstones N Kidney or Bladder Problems N Goiter N Acne N Eating Disorder N Weeks's Esophagus N Hypertriglyceridemia N Constipation N Embolism N Vitamin B12 Deficiency N Deviated Septum N AIDS/HIV N Myocardial Infarction N Asthma N Mitral Valve Disorders N Vertigo N Hepatitis N Thyroid Cancer N Neuropathy N History of DVT N Herniated Disc N Chicken Pox N Von Willebrands Disease N Thrombophilias N Breast Cancer N Hernia N Plantar Fasciitis N Hypothyroidism N Lung Disease N Defects or Inherited Disease N Breast Problem N Ovarian Cyst N Anesthesia Complications N Testosterone Deficiency N Interstitial Cystitis N Congenital Anomalies N Hypoglycemia N Blood clot N Vitamin D Deficiency N Cellulitis N Endometriosis N Bladder or Kidney Problems N Fracture N Panic Disorder N Schizophrenia N Concussion N Spina Bifida N Osteoarthritis N Parkinson's Disease N Disc Protrusion N STI N Esophagitis N Angina N Thyroid Problems N GI Problems N ADD/ADHD N Anemia N Multiple Sclerosis N Abnormal PAP N Lumbago N Mental Illness N Psychiatric Illness N Diabetes N Ovarian Cancer N Degenerative Disc Disease N Seizures/Epilepsy N Hyperlipidemia N Syncope N Insomnia N Eczema N Abuse/Domestic Violence N Attention Deficient Disorder N Dementia N Ulcerative colitis N Cerebrovascular Disease N Depression N Guillain-[place] N Sleep Apnea N Aneurysm N Bronchitis N Heart Disease N Hypertension N Pre-Eclampsia N Suicidal Ideation N Osteoporosis N Gynecological History Statement/Question Response Abnormal Pap Yes Flow Moderate Date of LMP 06/24/2018 On BCP's at Conception? N Post Menopausal Bleeding N STIs/STDs N Colposcopy 04/06/2015 HPV Vaccine N Duration of Flow (days) 6 Current Control Method BCPs Age at Menarche 16 Last Annual Exam/Provider 07/08/18 w/kra Frequency of Cycle (Q days) 28 Sexually Active? Y Date of Last Cervical Culture 07/11/2018 Menses Monthly Y Date of Last Pap Smear 02/06/2017 Sexual Problems? N LMP Approximate Hormone Replacement Therapy N Obstetrics History GPAL:G 1 P 1 0 0 1 Type Value Full Term 1 Living 1 Total 1 Immunizations Vaccine Type Date Status Note Provider Nam e and Address Organization Details Recorded Time HPV9 8 completed Not Available [facility] 05/09/2019 03:54:57 HPV9 8 completed Not Available [facility] 05/09/2019 03:55:00 HPV, quadrivalent 8 completed Not Available [facility] 05/09/2019 03:55:01 Past Encounters Encounter ID Performer Location Encounter Start Date Encounter Closed Date Diagnosis/Indication Diagnosis SNOMED-CT Code Diagnosis ICD10 Code Diagnosis IMO Codes Diagnosis Note [id number] MD Adriana Matta [employer] [address] [place] [address] FID[place] Agustin [id number] 7 04/01/2017 09:55:58 04/01/2017 10:35:53 Screening for malignant neoplasm of cervix 272139374 Z12.4 Condyloma acuminata of vulva 651108689 A63.0 [id number] MD Adriana Matta [employer] [address] [place] [address] FID[place] Agustin [id number] 7 05/17/2017 14:05:26 05/17/2017 14:58:37 Immunization due 279079424 Z28.3 [id number] MD Adriana Matta [employer] [address] [place] [address] FID[place] Agustin [id number] 7 07/15/2017 14:13:32 07/15/2017 14:32:30 Active or passive immunization 936174700 Z23 Condyloma acuminatum of the anogenital region 273838105 A63.0 [id number] MERCED Rojas [employer] [address] [place] [address] FID[place] Agustin [id number] 7 11/11/2017 16:13:06 11/11/2017 16:48:21 Active or passive immunization 397589887 Z23 [id number] MD Gladys [place] [employer] [address] [place] [address] FID[place] Agustin [id number] 7 07/08/2018 09:01:36 07/08/2018 09:42:21 Routine gynecologic examination done 8964588472 9101 Z01.419 Diet education 52196099 Z71.3 Counseling 179765416 Z71 .82 Exercise counselalexandra gore. Patient encouraged to exercise 30 minutes 5 days a week. Examinatio n of blood pressure 650634950 Z01.30 normotensi ve Vaccine de clined by patient 3849337346 02 Z28.21 Contracept ion care management 389245172 Z30.9 Body mass index 25-29 - overweight 200243171 Z68.29 Screening for malignant neoplasm of cervix 383520257 Z12.4 Venereal d isease screening 245493348 Z11.3 Depression screening 171 668526 Z13.31 PHQ 9 neg [id number] MD Alverto Merrill [place] [address] [place] [address] 05/19/2020 11:09:33 05/19/2020 11:59:26 Viral screening 063243668 Z11.52 [id number] MERCED Sanchez [place] [place] [address] 06/16/2020 11:17:02 06/16/2020 11:45:13 Depressive disorder 99131666 F32.9 Fatigue 21728855 R53.83 [id number] MERCED Sanchez [place] [address] [place], [place] [id number] 07/13/2020 16:39:40 07/13/2020 17:10:12 Depressive disorder 85593548 F32.9 controlled , improving [id number] MERCED Sanchezsb efrain [facility] [address], [place] [id number] 08/10/2021 16:07:21 08/10/2021 16:38:36 Depressive disorder 64686175 F32.9 chronic uncontroll edf [id number] MERCED Sanchezsb efrain [facility] [address], [place] [id number] 09/11/2021 17:10:18 09/11/2021 17:29:31 Depressive disorder 35696400 F32.9 chronic uncontroll ed, improving [id number] MERCED Sanchezb efrain [facility] [address], [place] [id number] 05/11/2022 16:38:01 05/11/2022 16:59:10 Depressive disorder 40200663 F32.9 chronic stable Health Concerns Section Related Observation LastModified by Organization Detai ls LastModified Time None Recorded Concern Status LastModified by Organization Details LastModified Time None Recorded Advance Directives Directive N: Payers Insurance Date Sequence Insurance Name Policy Number Policy Díaz Covered Member ID Díaz Member ID Guarantor Name 11/05/2022 1 [employer] (POS) Ru Stovall [id number] Connie Stovall 06/24/2017 1 *SELF PAY* Niraj Stovall 07/19/2023 [place] [id number] (MEDICAID) Connie Bull [id number] Connie Stovall 11/08/2022 1 *SELF PAY* Niraj Stovall 05/11/2022 1 [place] [id number] Connie Bull [id number] Connie Stovall 11/08/2022 1 [employer] [place] ([place]ICA[place] H[place]) Connie Bull [id number] Connie English Wilman 05/11/2022 1 [facility] ([facility]) [id number] Connie Bull [id number] Connie Stovall Notes Date Note Type Note Provider Name and Address Organization Details Recorded Time 06/16/2020 text/html Anxiety/Depressi onRepo rted by PatientHPIFor quality, patient reportsincreased anxiety. For context, patient reportsmajor life stressors (new baby). For associated symptoms, patient reportsemotional lability,high irritability,hypersens itivity,depression, andsleeping more (hypersomnia). For onset/timing, patient reports___ months ago.has 3 children, daughter 5 months old, a 4 year old, and a 10 year old. Catia Villanueva APRN [address], [place], [address], [employer] - [facility] 06/16/2020 12:55:46 07/13/2020 text/html Patient is in today for follow up on depression medication. Pt states she thinks she needs a stronger dose. Catia Villanueva APRN [address], [place], [address], [place] - [facility] 07/13/2020 17:12:36 08/10/2021 text/html Anxiety/Depressi onRepo rted by PatientHPIFor quality, patient reportsincreased anxietyandpanic symptoms. For context, patient reportsmajor life stressors. For associated symptoms, patient reportsemotional lability,high irritability,hostility ,anxiety,hypersensitiv ity, anddepression.ROS as noted in the HPI Catia Villanueva APRN [address], [place], [address], [place] - [facility] 08/10/2021 16:49:07 09/11/2021 text/html Patient is in today for follow up on depression medication Catia Villanueva APRN [address], [place], [address], [place] - [facility] 11/29/2021 13:55:15 05/11/2022 text/html Patient is in today for follow up on depression Catia Villanueva APRN [address], [place], [address], [place] - [facility] 05/11/2022 16:58:21 OBGyn Episode No OBEpisode recorded.
== END 2025-03-11 23:59 | disposition home or self-care (01) ==
LOC: LAB.DROPOF 03-12 13:47
PROVIDERS: PCP Internal Medicine; Visit Provider Internal Medicine
DX: E55.9 Vitamin D deficiency, unspecified (principal); E53.8 Deficiency of other specified B group vitamins; D50.9 Iron deficiency anemia, unspecified; F53.0 Postpartum depression; Z98.84 Bariatric surgery status
CPT/HCPCS: 80053; 82607; 82652; 83735; 85025